=== PATIENT | female | born 1955 | race Caucasian/White ===

== ENCOUNTER 2021-03-30 08:58 | Observation (INO) | payer MEDICARE ==
[~2021-03-30] VITALS: Ht 166.4 cm; Wt 102.5 kg
[2021-03-30 11:22] LABS: BASO # 0.1 x10^3/uL (0.0-0.2); BASO % 1 % (0-3); EOS # 0.1 x10^3/uL (0.0-0.7); EOS % 2 % (0-3); HEMATOCRIT 42.5 % (36.0-47.0); HEMOGLOBIN 14.5 g/dL (12.0-15.5); LYMPH # 1.3 x10^3/uL (1.0-4.8); LYMPH % 20 % (24-48); MEAN CORPUSCULAR HEMOGLOBIN 33 pg (25-35); MEAN CORPUSCULAR HGB CONC 34 g/dL (31-37); MEAN CORPUSCULAR VOLUME 96 fL (79-100); MONO # 0.6 x10^3/uL (0.0-1.1); MONO % 9 % (0-9); NEUT # 4.3 x10^3uL (1.8-7.7); NEUT % 68 % (31-73); PLATELET COUNT 256 x10^3/uL (140-400); RED BLOOD COUNT 4.43 x10^6/uL (3.50-5.40); RED CELL DISTRIBUTION WIDTH 13.2 % (11.5-14.5); WHITE BLOOD COUNT 6.4 x10^3/uL (4.0-11.0)
[2021-03-30 11:28] LABS: CALCIUM 9.4 mg/dL (8.5-10.1); CREATININE 0.8 mg/dL (0.6-1.0); GFR 71.3; POTASSIUM 3.8 mmol/L (3.5-5.1)
[2021-03-30 11:32] LABS: ALBUMIN 3.7 g/dL (3.4-5.0); ALBUMIN/GLOBULIN RATIO 0.9 (1.0-1.7); TOTAL BILIRUBIN 0.5 mg/dL (0.2-1.0); TOTAL PROTEIN 7.6 g/dL (6.4-8.2)
--- NOTE | 2021-03-30 11:38 | EKG ---
[address] [address] Test Date: 2021-03-30 Test Time: 11:10:31 Pat Name: CECE AVILA Department: Room: Gender: F Tax Accounting Manager: PETEY : 1955 Requested By: JOY GONZALES Order Number: [id number] Reading MD: Measurements Intervals [place] Rate: 74 P: 48 TX: 158 QRS: 24 QRSD: 90 T: 41 QT: 404 QTc: 454 Interpretive Statements SINUS RHYTHM NORMAL ECG RI6.02 No previous ECG available for comparison
--- NOTE | 2021-03-30 11:46 | RAD ---
EXAM: AP View of the chest DATE: 03/30/2021 10:47 AM INDICATION: Reason: chest pressure / Spl. Instructions: / History: COMPARISON: No Prior FINDINGS: The heart is not enlarged. Mediastinal and hilar contours are normal. Patchy opacities left lung base likely atelectasis or consolidation. Trace left pleural effusion or pleural thickening. No right pleural effusion. No pneumothorax. IMPRESSION: Patchy opacities left lung base likely atelectasis or consolidation. Trace left pleural effusion or pleural thickening. Electronically signed by: Michele Epps MD (03/30/2021 11:43 AM) [id number]
--- NOTE | 2021-03-30 13:02 | PHYS DOC ---
Past History Past Medical History: High Cholesterol, Hypertension, Hypothyroid Additional Past Medical Histor: RLS Past Surgical History: Appendectomy, Cholecystectomy, Additional Past Surgical Histo: ankle, bilat knee sx, Smoking: Non-smoker Alcohol Use: None General Adult EDM: Chief Complaint: HYPERTENSION HPI: HPI: Patient is a 66-year-old female with past medical history of hypertension, hyperlipidemia, hypothyroidism, early family history of coronary artery disease who presents with concern of hypertension. This morning her BP was 206/116. Prior to the BP check she was feeling chest pressure. Central/substernal in nature. Does not radiate. Not associated with nausea/vomiting. There was some lightheadedness. As pressure was at rest. She is now chest pain-free. She was worked up in [place] while on vacation for similar presentation of hypertension, that time with headache. 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 She was asked to follow-up with her PCP, but has not been able to arrange an appointment as an outpatient just yet. Review of Systems: Review of Systems: Constitutional: Denies fever or chills Eyes: Denies change in visual acuity HENT: Denies nasal congestion or sore throat Respiratory: Denies cough or shortness of breath Cardiovascular: + chest pain and hypertension. Or edema GI: Denies abdominal pain, nausea, vomiting, bloody stools or diarrhea : Denies dysuria Musculoskeletal: Denies back pain or joint pain Integument: Denies rash Neurologic: + Lightheadedness. Denies headache, focal weakness or sensory changes Endocrine: Denies polyuria or polydipsia Lymphatic: Denies swollen glands Psychiatric: Denies depression or anxiety Family History: Family History: Reports early family history of CAD Physical Exam: PE: Constitutional: Well developed, well nourished, no acute distress, non-toxic appearance. [] HENT: Normocephalic, atraumatic, bilateral external ears normal, oropharynx m oist, no oral exudates, nose normal. [] Eyes: PERRLA, EOMI, conjunctiva normal, no discharge. [] Neck: Normal range of motion, no tenderness, supple, no stridor. [] Cardiovascular:Heart rate regular rhythm, no murmur [] Lungs & Thorax: Bilateral breath sounds clear to auscultation [] Abdomen: Bowel sounds normal, soft, no tenderness, no masses, no pulsatile masses. [] Skin: Warm, dry, no erythema, no rash. [] Back: No tenderness, no CVA tenderness. [] Extremities: No tenderness, no cyanosis, no clubbing, ROM intact, no edema. [] Neurologic: Alert and oriented X 3, normal motor function, normal sensory function, no focal deficits noted. [] Psychologic: Affect normal, judgement normal, mood normal. [] Current Patient Data: Labs: Laboratory Tests Test 03/30/21 11:00 White Blood Count 6.4 x10^3/uL (4.0-11.0) Red Blood Count 4.43 x10^6/uL (3.50-5.40) Hemoglobin 14.5 g/dL (12.0-15.5) Hematocrit 42.5 % (36.0-47.0) Mean Corpuscular Volume 96 fL (79-100) Mean Corpuscular Hemoglobin 33 pg (25-35) Mean Corpuscular Hemoglobin Concent 34 g/dL (31-37) Red Cell Distribution Width 13.2 % (11.5-14.5) Platelet Count 256 x10^3/uL (140-400) Neutrophils (%) (Auto) 68 % (31-73) Lymphocytes (%) (Auto) 20 % (24-48) L Monocytes (%) (Auto) 9 % (0-9) Eosinophils (%) (Auto) 2 % (0-3) Basophils (%) (Auto) 1 % (0-3) Neutrophils # (Auto) 4.3 x10^3uL (1.8-7.7) Lymphocytes # (Auto) 1.3 x10^3/uL (1.0-4.8) Monocytes # (Auto) 0.6 x10^3/uL (0.0-1.1) Eosinophils # (Auto) 0.1 x10^3/uL (0.0-0.7) Basophils # (Auto) 0.1 x10^3/uL (0.0-0.2) Sodium Level 142 mmol/L (136-145) Potassium Level 3.8 mmol/L (3.5-5.1) Chloride Level 102 mmol/L (98-107) Carbon Dioxide Level 30 mmol/L (21-32) Anion Gap 10 (6-14) Blood Urea Nitrogen 13 mg/dL (7-20) Creatinine 0.8 mg/dL (0.6-1.0) Estimated GFR (Cockcroft-Gault) 71.3 BUN/Creatinine Ratio 16 (6-20) Glucose Level 99 mg/dL (70-99) Calcium Level 9.4 mg/dL (8.5-10.1) Total Bilirubin 0.5 mg/dL (0.2-1.0) Aspartate Amino Transferase (AST) 50 U/L (15-37) H Alanine Aminotransferase (ALT) 57 U/L (14-59) Alkaline Phosphatase 59 U/L (46-116) Troponin I Quantitative < 0.017 ng/mL (0-0.055) Total Protein 7.6 g/dL (6.4-8.2) Albumin 3.7 g/dL (3.4-5.0) Albumin/Globulin Ratio 0.9 (1.0-1.7) L Vital Signs: Vital Signs Date Time Temp Pulse Resp B/P (MAP) Pulse Ox O2 Delivery O2 Flow Rate FiO2 03/30/21 11:41 74 18 156/87 (110) 97 Room Air 03/30/21 09:21 98.3 EKG: EKG: Sinus rhythm. Heart rate 74. RSR prime inferiorly. Nonspecific IVCD. No T wave inversion or ST depression. [] Radiology/Procedures: Radiology/Procedures: [] Heart Score: C/O Chest Pain: Yes HEART Score for Chest Pain: HEART Score for Chest Pain Response (Comments) Value History Slighlty/Non-Suspicious 0 ECG Normal 0 Age > 65 2 Risk Factors >3 Risk Factors or Hx CAD 2 Troponin < Normal Limit 0 Total 4 Risk Factors: Risk Factors: DM, Current or recent (<one month) smoker, HTN, HLP, family history of CAD, obesity. Risk Scores: Score 4 - 6: 20.3% MACE over next 6 weeks - Admit for Clinical Observation Course & Med Decision Making: Course & Med Decision Making Pertinent Labs and Imaging studies reviewed. (See chart for details) Patient is 66-year-old female with past medical history of HTN, HLD, early family history of CAD who presents with chest pain and hypertension. Chest pain is nonexertional, described as pressure. On arrival is hypertensive, but comes down to normotensive ranges without intervention. Her EKG showed some nons pecific IVCD changes, without any ST depression or elevation. Her initial troponin is negative. Given her risk factors/heart score of 4 she will be admitted to the hospitalist for chest pain evaluation. Dragon Disclaimer: Dragon Disclaimer: This electronic medical record was generated, in whole or in part, using a voice recognition dictation system. Departure Departure: Referrals: RAMOS MORGAN (PCP) JOY GONZALES MD Mar 30, 2021 13:02
[2021-03-30 14:08] VITALS: BP 168/92
--- NOTE | 2021-03-30 14:25 | NUR ---
Nursing Note Admission Pt arrived via EMS. Pt ambulated to bed. Pt calm, cooperative, A&O x 4. Pt came with purse, home meds, phone, clothes.
[2021-03-30] MEDS ORDERED: CITA20TA6 PO (14:38)
[2021-03-30] MEDS ORDERED: HYDR12.58 PO (14:38)
[2021-03-30] MEDS ORDERED: PRAM0.255 PO (14:38)
[2021-03-30] MEDS ORDERED: CARV6.2541 PO (14:38)
[2021-03-30] MEDS ORDERED: LOSA100T14 PO (14:38)
[2021-03-30] MEDS ORDERED: OMEG-33 PO (14:41)
[2021-03-30] MEDS ORDERED: TUME1CAP PO (14:41)
[2021-03-30] MEDS ORDERED: ASPI-630 PO (14:41)
[2021-03-30 16:00] VITALS: BP 170/83
--- NOTE | 2021-03-30 16:14 | HP ---
ADMIT DATE: 03/30/2021 ATTENDING PHYSICIAN: Dr. Grove. CHIEF COMPLAINT: Chest pressure and high blood pressure. HISTORY OF PRESENT ILLNESS: The patient is a 66-year-old female with some medical issues. She has labile hypertension. Blood pressure is very high. She has had some chest pressure going to review of system. 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 She was not symptomatic as a child, but about 15 years ago, she had an elective ablation to ___ the accessory pathway. Since that time, she is not on any medication. She has not had any recurrent arrhythmias. She does have high blood pressure in the ED. It was initially 190 systolic, by the time I saw her, it came down to 156/87. She has had some vague symptoms of chest pressure or dyspnea. She has not had an ischemic workup in the past. She had a similar episode in [place] just a few weeks ago. At that time, she did tell me she had carotid Dopplers with some dizziness. It was a 50% lesion of the right carotid without any hemodynamic compromise. The patient had blood work done in the ED. The first set of cardiac enzymes are negative for coronary ischemia. She is admitted then for observation and formal Cardiology consultation. PAST MEDICAL HISTORY: Significant for Lgrqh-Gmkeyiiyl-Jomtp syndrome. She could not tell me the name of her Crime Lab Technician. It was supposedly done at [facility] in [place]. She states that Cardiology is no longer there. ALLERGIES: SHE HAS ALLERGIES TO PENICILLINS, STATINS AND ADHESIVE TAPE. CURRENT MEDICATIONS: Reviewed. She was taking scheduled aspirin, Coreg 6.25 mg b.i.d., Celexa 20 mg daily, hydrochlorothiazide/losartan 100 mg daily, omega-3 fish oil, Mirapex, and turmeric with kunal vitamins. SOCIAL HISTORY: She is a nonsmoker, nondrinker. FAMILY HISTORY: Noncontributory. REVIEW OF SYSTEMS: Significant for the recent travel. She has had some dyspnea with minimal exertion. She has no stress factors in her life. All other systems reviewed and turned to be negative. There is no COVID exposure. PHYSICAL EXAMINATION: GENERAL: When I saw her, this is a pleasant, middle-aged female. VITAL SIGNS: Initial vital signs reportedly in the ED was anywhere between 156 and 176 mmHg. Her pulse is 79 and regular. She was afebrile. Oxygen saturation 95% on room air. HEENT: Head is without trauma. Pupils are reactive. Sclerae nonicteric. Oropharynx is clear. NECK: Supple. No bruits identified. LUNGS: Otherwise, clear to auscultation. CARDIOVASCULAR: Showed regular heart tones. No gallops. ABDOMEN: Soft. EXTREMITIES: Without edema. NEUROLOGIC: Focally intact. SKIN: Warm and dry. PERTINENT LABORATORY STUDIES: The hemoglobin is 14.5 g/dL with white count of 6400. Electrolytes: BUN and creatinine all within normal range. The first troponin was 0.01 and nonischemic. DIAGNOSTIC DATA: EKG is nondiagnostic. Chest x-ray was unremarkable. There is some patchy opacity in left lung base, most likely atelectasis. ASSESSMENT: 1. A 66-year-old female with labile hypertension. 2. Chest discomfort, rule out coronary ischemia. 3. 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 4. Degenerative arthritis. 5. Hyperlipidemia. PLAN: 1. Admit to the inpatient unit. 2. Serial cardiac enzymes. 3. Continue blood pressure medications as ordered. 4. Formal Cardiology consultation. 5. Further testing as stress test pending Cardiology evaluation. CARMEN DR: Marlin TID: [id number] CC: SARAN CORDOBA
--- NOTE | 2021-03-30 16:33 | NUR ---
Nursing Note Consult Cardiology Consult called per Dr. Grove request for hypertension.
[2021-03-30] MEDS: CARVEDILOL 6.25 MG TABLET PO SCH (17:54)
[2021-03-30 19:22] VITALS: BP 130/64
[2021-03-30] MEDS: OMEGA-3 FATTY ACIDS/FISH OIL 1,000 MG CAPSULE. PO SCH (20:28)
[2021-03-30] MEDS ORDERED: PRAMIPEXOLE 0.5 MG TABLET. PO SCH (21:00)
[2021-03-30 22:46] VITALS: BP 142/82
[2021-03-31 05:06] VITALS: BP 159/84
--- NOTE | 2021-03-31 06:06 | NUR ---
Pt denied any c/o chest pain/pressure this shift. Up in hallway walking laps in the evening, steady gait noted. BP better controlled. Pt hopeful to DC home after seeing cardio today.
[2021-03-31] MEDS: OMEGA-3 FATTY ACIDS/FISH OIL 1,000 MG CAPSULE. PO SCH (08:06)
[2021-03-31] MEDS: CARVEDILOL 6.25 MG TABLET PO SCH (08:07)
[2021-03-31 08:13] VITALS: BP 157/93
--- NOTE | 2021-03-31 08:21 | PDOC2 ---
CARDIAC CONSULT DATE OF CONSULT DOS: DATE: 03/31/21 TIME: 08:16 REASON FOR CONSULT Reason for Consult Hypertension REFERRING PHYSICIAN Referring Physician Dr. Grove SOURCE Source: Chart review, Patient HPI History of Present Illness This is a 66 yo female who presented secondary to hypertension and chest pressure. Patient reports blood pressure has been intermittently elevated for the last couple of weeks. Was vacationing in [place] earlier this month. Was lay ing and bed and had headache. Turned over and felt dizzy and nauseated. Checked blood pressure and SBP was > 200. Went to hospital for further evaluation and treatment. Workup was benign and was discharged home. Coreg was increase to 6.25mg BID. Reports blood pressure had been better controlled, but then was noted to be significantly elevated again yesterday and noticed some pressure in her central chest so she decided to come to the ED for further evaluation and treatment. Reports compliance with meds. PAST MEDICAL HISTORY Cardiovascular: HTN, hyperipidemia, Other (WPW s/p ablation therapy ) Endocrine: Hypothyroidism PAST SURGICAL HISTORY Past Surgical History: Appendectomy, Cholecystectomy, Total knee replacement (bilateral ) FAMILY HISTORY Family History: Heart Disease (father and brother with CAD s/p CABG), Hypertension, Stroke SOCIAL HISTORY Smoke: No ALCOHOL: none Drugs: None Lives: with Family CURRENT MEDICATIONS Current Medications Current Medications Aspirin (Aspirin Chewable) 81 mg DAILY PO Last administered on 03/31/21at 08:06; Start 03/31/21 at 09:00 Carvedilol (Coreg) 6.25 mg BIDWMEALS PO Last administered on 03/31/21at 08:07; Start 03/30/21 at 17:00 Citalopram Hydrobromide (CeleXA) 20 mg DAILY PO Last administered on 03/31/21at 08:07; Start 03/31/21 at 09:00 Pramipexole Dihydrochloride (miraPEX) 0.5 mg DAILY PO ; Start 03/31/21 at 09:00; Stop 03/30/21 at 20:33; Status DC Losartan Potassium (Cozaar) 100 mg DAILY PO Last administered on 03/31/21at 08:07; Start 03/31/21 at 09:00 Fish Oil (Fish Oil) 1,000 mg BID PO Last administered on 03/31/21at 08:06; Start 03/30/21 at 21:00 Pramipexole Dihydrochloride (miraPEX) 0.5 mg HS PO Last administered on 03/30/21at 20:38; Start 03/30/21 at 21:00 Active Scripts Active Reported Candicidal Capsule (Tumeric/Ging/[place]/Oreg/Capryl) 1 Each Capsule 500 Mg PO . [place] 3 1,000 Mg Softgel ([place]-3 Fatty Acids/Fish Oil) 1 Each Capsule 1 Cap PO BID 30 Days WITH MEALS Aspirin 81 Mg Tab.chew 81 Mg PO DAILY Losartan Potassium 100 Mg Tablet 100 Mg PO DAILY Mirapex (Pramipexole Di-Hcl) 0.25 Mg Tablet 0.5 Mg PO DAILY Carvedilol (Carvedilol) 6.25 Mg Tablet 6.25 Mg PO BIDWMEALS Hydrochlorothiazide Tablet (Hydrochlorothiazide) 12.5 Mg Tablet 12.5 Mg PO DAILY Citalopram Hbr (Citalopram Hydrobromide) 20 Mg Tablet 20 Mg PO DAILY ALLERGIES Allergies: Coded Allergies: Penicillins (Verified Allergy, Unknown, 03/30/21) Tdvvwvz-Jei-Atb Reductase Inhibitor (Verified Allergy, Unknown, 03/30/21) adhesive tape (Verified Allergy, Unknown, 03/30/21) ROS Review of Systems 14 point ROS conducted with pertinent positives noted above in HPI PHYSICAL EXAM General: Alert, Oriented X3, Cooperative, No acute distress HEENT: Atraumatic, Mucous membr. moist/pink Lungs: Clear to auscultation Heart: Regular rate Abdomen: Soft, No tenderness Extremities: No edema, Normal pulses Skin: No breakdown Neuro: Normal speech, Sensation intact Psych/Mental Status: Mental status NL, Mood NL MUSCULOSKELETAL: Osteoarthritic changes both hands VITALS Vital Signs Vital Signs Date Time Temp Pulse Resp B/P (MAP) Pulse Ox O2 Delivery O2 Flow Rate FiO2 03/31/21 08:13 71 157/93 (114) 03/31/21 05:06 98.3 18 94 Room Air LABS LABS Laboratory Tests Test 03/30/21 11:00 03/30/21 17:00 03/30/21 22:30 White Blood Count 6.4 x10^3/uL (4.0-11.0) Red Blood Count 4.43 x10^6/uL (3.50-5.40) Hemoglobin 14.5 g/dL (12.0-15.5) Hematocrit 42.5 % (36.0-47.0) Mean Corpuscular Volume 96 fL (79-100) Mean Corpuscular Hemoglobin 33 pg (25-35) Mean Corpuscular Hemoglobin Concent 34 g/dL (31-37) Red Cell Distribution Width 13.2 % (11.5-14.5) Platelet Count 256 x10^3/uL (140-400) Neutrophils (%) (Auto) 68 % (31-73) Lymphocytes (%) (Auto) 20 % (24-48) Monocytes (%) (Auto) 9 % (0-9) Eosinophils (%) (Auto) 2 % (0-3) Basophils (%) (Auto) 1 % (0-3) Neutrophils # (Auto) 4.3 x10^3uL (1.8-7.7) Lymphocytes # (Auto) 1.3 x10^3/uL (1.0-4.8) Monocytes # (Auto) 0.6 x10^3/uL (0.0-1.1) Eosinophils # (Auto) 0.1 x10^3/uL (0.0-0.7) Basophils # (Auto) 0.1 x10^3/uL (0.0-0.2) Sodium Level 142 mmol/L (136-145) Potassium Level 3.8 mmol/L (3.5-5.1) Chloride Level 102 mmol/L (98-107) Carbon Dioxide Level 30 mmol/L (21-32) Anion Gap 10 (6-14) Blood Urea Nitrogen 13 mg/dL (7-20) Creatinine 0.8 mg/dL (0.6-1.0) Estimated GFR (Cockcroft-Gault) 71.3 BUN/Creatinine Ratio 16 (6-20) Glucose Level 99 mg/dL (70-99) Calcium Level 9.4 mg/dL (8.5-10.1) Total Bilirubin 0.5 mg/dL (0.2-1.0) Aspartate Amino Transf (AST/SGOT) 50 U/L (15-37) Alanine Aminotransferase (ALT/SGPT) 57 U/L (14-59) Alkaline Phosphatase 59 U/L (46-116) Troponin I Quantitative < 0.017 ng/mL (0-0.055) < 0.017 ng/mL (0-0.055) < 0.017 ng/mL (0-0.055) Total Protein 7.6 g/dL (6.4-8.2) Albumin 3.7 g/dL (3.4-5.0) Albumin/Globulin Ratio 0.9 (1.0-1.7) ASSESSMENT/PLAN Assessment/Plan 1. Accelerated hypertension; remains mildly elevated 2. Chest pressure; AMI ruled out. Most probably secondary to #1, but does have risk factors and significant family history 3. Hyperlipidemia; intolerant to statin Recommendations Lipids ASA Continue Coreg, losartan. Add amlodipine Outpatient stress test and echo as arranged Follow up in our office as scheduled ALICE JAEGER APRN Mar 31, 2021 08:21
[2021-03-31] MEDS ORDERED: PRAMIPEXOLE 0.5 MG TABLET. PO SCH (09:00)
[2021-03-31] MEDS ORDERED: LOSARTAN 50 MG TABLET. PO SCH (09:00)
[2021-03-31] MEDS ORDERED: CITALOPRAM 20 MG TABLET. PO SCH (09:00)
[2021-03-31] MEDS ORDERED: ASPIRIN CHEWABLE 81 MG TABLET. PO SCH (09:00)
[2021-03-31] MEDS ORDERED: amLODIPine BESYLATE 5 MG TABLET PO ONE (09:50)
[2021-03-31 11:01] VITALS: BP 151/86
--- NOTE | 2021-03-31 11:03 | NUR ---
Nursing Note Discharge Pt ambulated to private vehicle with all of her belongings. Pt's picked her up. Pt in stable condition. Pt's home meds were returned to her upon discharge. Pt A&O x 4. Pt accompanied by staff member to the front door.
--- NOTE | 2021-03-31 11:58 | DS ---
DATE OF DISCHARGE: 03/31/2021 ATTENDING PHYSICIAN: Dr. Grove. DATE OF ADMISSION: 03/30/2021 DATE OF DISCHARGE: 03/31/2021 FINAL DISCHARGE DIAGNOSES: 1. Labile hypertension. 2. Chest discomfort, coronary ischemia ruled out. 3. History of Zjeeb-Jbaxgtbff-Txfkk syndrome with previous catheter ablation of accessory pathway. 4. Degenerative arthritis. 5. Hyperlipidemia. HISTORY AND PHYSICAL: The patient is a pleasant 66-year-old female admitted through the Emergency Department with labile hypertension and vague nonspecific complaints of chest pressure. She has some risk factors and was admitted for cardiac enzymes and Cardiology consultation. PHYSICAL EXAMINATION: Please see my dictated note. PERTINENT LABORATORY AND X-RAY STUDIES: Admission hemoglobin was 14.5 g/dL, white count 6400. Electrolytes all within normal range. BUN and creatinine, liver panel all normal. Three sets of cardiac enzymes are negative for coronary ischemia. EKG was nondiagnostic. Chest x-ray was clear. COURSE IN THE HOSPITAL: The patient was admitted. She had serial enzymes. Home medications were continued. She had a formal Cardiology consultation. We recommended outpatient as well as a nuclear medicine stress test at that time. Because of her blood pressure, we took the liberty of adding 5 mg of Norvasc to her regimen. By the second hospital day, she was doing much better. I suspect that there is some strong family issues and stress dealing with her children that are contributing to her blood pressure elevation. She was discharged home then with a new script for Norvasc 5 mg p.o. daily. She should continue her aspirin 81 mg daily, Coreg 6.25 mg b.i.d., Celexa, hydrochlorothiazide, losartan 100 mg p.o. daily, [place] 3 fish oil 1 daily, Mirapex and turmeric supple. The patient was then discharged from our hospital in stable condition with explicit drug and followup care, outpatient evaluation with scheduled nuclear stress test. CARMEN DR: Marlin TID: [id number] CC: lAmaz Jasso
== END 2021-03-31 11:05 | disposition home or self-care (01) ==
LOC: ER 08:58 → INTOOBSV 13:32 → 1 SOUTH 13:32
PROVIDERS: ADMIT Hospitalist; ATTEND Hospitalist
DX: I10 Essential (primary) hypertension (principal); E03.9 Hypothyroidism, unspecified; Z90.49 Acquired absence of other specified parts of digestive tract; R09.89 Other specified symptoms and signs involving the circulatory and respiratory systems; E78.00 Pure hypercholesterolemia, unspecified; E78.5 Hyperlipidemia, unspecified; G25.81 Restless legs syndrome; M19.90 Unspecified osteoarthritis, unspecified site; Z79.82 Long term (current) use of aspirin; Z79.899 Other long term (current) drug therapy; Z96.653 Presence of artificial knee joint, bilateral; R42 Dizziness and giddiness
CPT/HCPCS: 36415; 71045; 80053; 84484; 85025; 93005; 99285; G0378; G0379

== ENCOUNTER → 2021-08-25 | Outpatient (CLI) | payer MEDICARE ==
[~2021-08-25] MED LIST: ASPI-630 PO; CARV6.2541 PO; CITA20TA6 PO; HYDR12.58 PO; LOSA100T14 PO; OMEG-33 PO; PRAM0.255 PO; TUME1CAP PO
--- NOTE | 2021-08-25 11:46 | RAD ---
EXAM: DUAL ENERGY X-RAY ABSORPTIOMETRY (DEXA). HISTORY: Postmenopausal screening. FINDINGS: The lowest measured T-score is -1.9 in the right femoral neck, based on a bone mineral dens ity of 0.701 g/cm^2. Refer to the worksheets for full detail. No comparison examinations are available. IMPRESSION: 1. Low bone mass. Bone mineral density yields a T-score between -1.0 and -2.5. Fracture risk is incre ased. 2. FRAX report: Not calculated. METHODOLOGY: Dual energy x-ray absorptiometry was performed to measure bone mineral density. The foll owing analysis is based on the 2019 Official Positions of the International Society for Clinical Dens itometry: Measurements of the hips and the average of L1-L4 are preferred. When the spine and/or hip cannot be feasibly measured or interpreted, or in the setting of hyperparathyroidism, distal radial bone minera l density may be measured. The lumbar spine T-score is based on the average bone mineral density of L1-L4. In the setting of art ifact or anatomic abnormality, some lumbar levels may be excluded, and the remaining levels used for calculation. A single lumbar level is not used for diagnosis, and if only a single level is available for assessment, another anatomic site will be used to assign a diagnosis. The hip T-score is based on the bone mineral density measurement of the femoral neck or total proxima l femur of either side, whichever is lowest. Bilateral mean values are not used for diagnosis. The forearm T-score is derived from 33% of the distal radius of the nondominant forearm. Electronically signed by: Sophia Morel MD (08/25/2021 11:44 AM) [id number]
--- NOTE | 2021-08-27 11:28 | RAD ---
INDICATION: 66 years of age asymptomatic female patient presents for screening mammography. Screening TECHNIQUE: Full field craniocaudal and mediolateral oblique images of both breasts were obtained usi ng digital technique with tomosynthesis and also analyzed with computer-aided detection software. . COMPARISON: 07/24/2019 03/17/2015.. BREAST COMPOSITION: Category B: There are scattered fibroglandular densities. FINDINGS: No suspicious mass or clustered microcalcification. Parenchymal pattern is stable. No architectural d istortion. IMPRESSION: Stable bilateral mammogram RECOMMENDATION: Annual screening mammography is recommended, unless clinically indicated sooner based on symptoms or change in physical exam. BIRADS 1: NEGATIVE This study was interpreted with the benefit of Computerized Aided Detection (CAD). Recommend routine screening in one year. Patient information is entered into the reminder system with a target due date for the next screening mammogram. Mammography is the most sensitive method for finding small breast cancers, but it does not detect the m all and is not a substitute for careful clinical examination. A negative mammogram does not negate a clinically suspicious finding and should not result in delay in biopsying a clinically suspicious a bnormality. "Our facility is accredited by the [employer] Mammography Program." Electronically signed by: Jeff Barton MD (08/27/2021 11:26 AM) [id number]
== END ==
LOC: MAMMO 10:54
PROVIDERS: ATTEND Family Medicine
DX: Z12.31 Encounter for screening mammogram for malignant neoplasm of breast (principal); M85.88 Other specified disorders of bone density and structure, other site; Z78.0 Asymptomatic menopausal state
CPT/HCPCS: 77063; 77067; 77080